=== PATIENT | female | born 2000 | race Caucasian/White ===

== ENCOUNTER 2024-01-14 07:50 | Emergency (ER) | payer SELFPAY ==
[2024-01-14 07:55] VITALS: BP 130/73; PULSE 93; TEMP 37.1; O2SAT 98; BMI 215.5
--- NOTE | 2024-01-14 08:13 | ED_ITS ---
HPI - Female Genitourinary General Chief complaint: Urogenital-Female Stated complaint: UTI COMPLAINTS Time Seen by Provider: 01/14/24 07:53 Source: patient Mode of arrival: walk-in Limitations: no limitations History of Present Illness HPI Narrative: The patient is coming to us with a urinary tract infection symptoms of frequency and urgency. Patient mentioned that she also have some bilateral flank pain sometime. She mentioned that she had no fever but may be some chills. She denies any blood in urine she does not have any other complaints The patient mentioned that she have a frequent UTI mostly at least once every 2- month No other Related Data Previous Rx's ?Medication ?Instructions ?Recorded cephalexin 500 mg capsule 500 mg PO Q8H 7 days #21 caps 01/14/24 dicyclomine 20 mg tablet 20 mg PO QID PRN abdominal pain 01/14/24 #10 tabs Allergies Allergy/AdvReac Type Severity Reaction Status Date / Time No Known Drug Allergies Allergy Verified 01/14/24 07:54 Review of Systems ROS Status of ROS 10 or more systems reviewed and unremark able except as noted in history and below Exam Narrative Exam Narrative: Nurses notes and vital signs reviewed and patient is not hypoxic. General: Well-appearing and in no apparent distress. Skin: Warm, dry, no pallor noted. No rash. Head: Normocephalic, atraumatic. Neck: Supple, non-tender. Eye: Pupils are equal, round and EOMI. No scleral icterus. Ears, Nose, Mouth, and Throat: TM are clear, no nasal mucosal hypertrophy. Oral mucosa is moist, no posterior oropharynx erythema, uvula is mid-line Cardiovascular: Regular Rate and Rhythm without murmur, gallop or rub. Respiratory: No accessory muscle use or respiratory distress. Lungs are clear to auscultation, no wheezing, rales or rhonchi Chest Wall: no tenderness Back: No midline thoracic or lumbar vertebral tenderness. No flank pain Musculoskeletal: normal ROM, no calf or popliteal tenderness, no lower extremity edema/swelling GI: Abdomen is soft, non-distended. Normal bowel sounds. No masses appreciated. No tenderness to palpation. No rebound, guarding, or rigidity noted. Neurological: A&O x4. No cranial nerve dysfunction observed. No truncal ataxia. Moves all extremities. Sensation intact. Psychiatric: Cooperative and interactive. Normal mood and affect. Constitutional Vital Signs, click to edit/add: Last Vital Signs Temp 98.8 F 01/14/24 07:55 Pulse 93 H 01/14/24 07:55 Resp 18 01/14/24 07:55 BP 130/73 01/14/24 07:55 Pulse Ox 98 01/14/24 07:55 O2 Del Method Room Air 01/14/24 07:55 Course Vital Signs Vital signs: Vital Signs Temperature 98.8 F 01/14/24 07:55 Pulse Rate 93 H 01/14/24 07:55 Respiratory Rate 18 01/14/24 07:55 Blood Pressure 130/73 01/14/24 07:55 Pulse Oximetry 98 01/14/24 07:55 Oxygen Delivery Method Room Air 01/14/24 07:55 Temperature 98.8 F 01/14/24 07:55 Pulse Rate 93 H 01/14/24 07:55 Respiratory Rate 18 01/14/24 07:55 Blood Pressure 130/73 01/14/24 07:55 Pulse Oximetry 98 01/14/24 07:55 Oxygen Delivery Method Room Air 01/14/24 07:55 MDM - Female Genitourinary MDM Narrative Medical decision making narrative: The patient presented to us with a positive urine for UTI but it was a long discussion with the patient the fact that she apparently drink enough water daily but she works in the construction. And she might be delaying going to the bathroom and that may causing her to cause her frequent UTI I did start the patient on Keflex as well as Bentyl for crampy pain and she was instructed that in case of any worsening she is to come back to the ER But she also was instructed that she need to follow-up with the primary care within a week just to make sure that she have resolution of her symptoms The patient is to follow up with primary care physician in next 2-3 days or to return to the emergency department should any of the signs or symptoms worsen or new symptoms develop. The patient agrees with the following Diagnosis and Treatment plan and the patient will be discharged home. Lab Data Labs: Lab Results 01/14/24 Range/Units 08:04 Urine Color Lt. yellow (YELLOW) Urine Clarity Cloudy A (CLEAR) Urine pH 6.5 (5.0-9.0) Ur Specific [place] 1.025 (1.005-1.025) Urine Protein Negative (NEG/TRACE) mg/dL Urine Glucose (UA) Negative (NEGATIVE) mg/dL Urine Ketones Negative (NEGATIVE) mg/dL Urine Occult Blood Negative (NEGATIVE) Urine Nitrite Negative (NEGATIVE) Urine Bilirubin Negative (NEGATIVE) Urine Urobilinogen 1.0 (0.2-1.0) EU/dL Ur Leukocyte Esterase Small A (NEGATIVE) Urine RBC 0-2 (0-2) #/HPF Urine WBC >100 A (NONE SEEN) #/HPF Ur Squamous Epith Cells Moderate A (NONE/RARE) #/LPF Urine Crystals None seen (None Seen) #/HPF Urine Bacteria Large A (NONE SEEN) #/HPF Urine Casts None seen (NONE SEEN) #/LPF Urine Mucus Moderate A (NONE SEEN) Ur Culture Indicated? Yes Urine HCG, Qual Negative (NEGATIVE) Discharge Plan Discharge Stand Alone Forms: Portal Instructions Chief Complaint: Urogenital-Female Clinical Impression: Urinary tract infection Qualifiers: Urinary tract infection type: site unspecified Hematuria presence: without hematuria Qualified Code(s): N39.0 - Urinary tract infection, site not specified Patient Disposition: Home, Self-Care Time of Disposition Decision: 08:49 Condition: Good Mode of Transportation: Private Vehicle Prescriptions / Home Meds: New cephalexin 500 mg capsule 500 mg PO Q8H 7 Days Qty: 21 0RF dicyclomine 20 mg tablet 20 mg PO QID PRN (Reason: abdominal pain) Qty: 10 0RF Print Language: Iranian Instructions: Urinary Tract Infection in Women (DC) Referrals: Physician,Non-Staff, [Primary Care Provider] - 1 week Discharge Date/Time: 01/14/24 08:59
[2024-01-14 08:19] LABS: Bilirubin Urine NEGATIVE (NEGATIVE); Blood Urine NEGATIVE (NEGATIVE); Clarity Urine CLOUDY (CLEAR); Color Urine LT. YELLOW (YELLOW); Glucose Urine UA NEGATIVE (NEGATIVE); HCG Qualitative Urine* NEGATIVE (NEGATIVE); Internal Control Within Normal Limits; Ketones Urine NEGATIVE (NEGATIVE); Leukocyte Esterase Urine SMALL (NEGATIVE); Nitrite Urine NEGATIVE (NEGATIVE); Protein Urine NEGATIVE (NEG/TRACE); Specific Gravity Urine 1.025 (1.005-1.025); pH Urine 6.5 (5.0-9.0)
[2024-01-14 08:20] LABS: Urine Microscopic Indicated YES
[2024-01-14 08:37] LABS: WBC Urine >100 #/HPF (NONE SEEN)
[2024-01-14 08:38] LABS: Bacteria Urine LARGE #/HPF (NONE SEEN); Mucus Urine MODERATE (NONE SEEN); RBC Urine 0-2 #/HPF (0-2)
[2024-01-14 08:39] LABS: Cast Seen? NONE SEEN #/LPF (NONE SEEN); Crystals Seen? None Seen #/HPF (None Seen); Squamous Epithelial Cell Urine MODERATE #/LPF (NONE/RARE); Urine Culture Indicated YES
== END 2024-01-14 08:59 | disposition home or self-care (01) ==
PROVIDERS: Emergency Provider Emergency Medicine
DX: N39.0 Urinary tract infection, site not specified (principal); Z87.440 Personal history of urinary (tract) infections
CPT/HCPCS: 81001; 84703; 87086; 87150; 87186; 99283